=== PATIENT | male | born 1965 | race Caucasian/White ===

== ENCOUNTER 2017-07-19 11:02 | Inpatient (IN) | payer SELFPAY ==
--- NOTE | 2017-07-19 10:52 | EDPHY ---
H & P Constitutional: Initial Vital Signs Temperature (C) 36.8 C 07/19/17 11:02 Heart Rate 73 07/19/17 11:02 Respiratory Rate 16 07/19/17 11:02 Blood Pressure 188/115 H 07/19/17 11:02 O2 Sat (%) 96 07/19/17 11:02 O2 Delivery Mode Room Air Allergies/Adverse Reactions: Penicillins Allergy (Verified 07/19/17 11:34) Home Medications: Medication Instructions Recorded Atenolol 07/19/17 Coumadin 07/19/17 Medical Decision Making - Diagnostics Imaging Results: Imaging Impressions Head CT 07/19/17 11:07 Impression: No evidence for acute intracranial abnormality. Results relayed to Dr. Clint Coates at 1115 hours on 19 July 2017. Head CTA 07/19/17 11:07 Impression: 1. No acute vascular findings. If symptoms persist and clinical suspicion warrants, consider MRI. 2. Multilevel degenerative change in the cervical spine, with moderate to severe spinal canal narrowing and neural foraminal stenosis. 3. 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 4. Additional findings as above. Stenoses are calculated using [place] Symptomatic Carotid Endarterectomy Trial (NASCET) criteria. Findings discussed with Dr. Clint Coates on July 19, 2017 at 1136 hours. Neck CTA 07/19/17 11:07 Impression: 1. No acute vascular findings. If symptoms persist and clinical suspicion warrants, consider MRI. 2. Multilevel degenerative change in the cervical spine, with moderate to severe spinal canal narrowing and neural foraminal stenosis. 3. 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 4. Additional findings as above. Stenoses are calculated using [place] Symptomatic Carotid Endarterectomy Trial (NASCET) criteria. Findings discussed with Dr. Clint Coates on July 19, 2017 at 1136 hours. Chest X-Ray 07/19/17 11:10 Impression: Hypoventilation and moderate airways disease. Imaging: Discussed imaging studies w/ call center professional Radiologist, I viewed and interpreted images myself ED Course/Re-evaluation: CHIEF COMPLAINT: Stroke Alert, aphasia HISTORY OF PRESENT ILLNESS: The patient is an anticoagulated 51 y/o male arriving emergently via EMS with his girlfriend as a Stroke Alert for acute difficulty speaking and facial paresthesias onset 1-2 hours prior to arrival here, between 09:00-10:00am. He was last seen normal by his girlfriend around 09:10 when she woke him up before going outside to smoke, though she has great difficulty clearly describing the progression of events and time onset. She thinks he seemed "sluggish" but was otherwise walking and speaking normally, but she didn't interact with him much. At some point he told his he felt ill and sat down between 09:30-10:00. He complained of right facial numbness, headache, and had difficulty walking. His then noticed he started "gurgling" and could not speak normally. Per , he has a history of CVA with some left-sided weakness in his leg and normally walks with a cane. She also says he complained of an occipital headache yesterday and took 2 aspirin today. He takes Coumadin, but his girlfriend is unable to tell me what he takes it for. He has a history of multiple heart attacks per girlfriend. She is an extremely poor historian and patient is aphasic and unable to contribute to history. REVIEW OF SYSTEMS: Difficult to obtain due to poor history. PHYSICAL EXAM: HR, BP, O2 Sat, RR. Temp noted General Appearance: Alert, aphasic, able to follow some commands, only moving right arm minimally. Head: Atraumatic without scalp tenderness or obvious injury Eyes: Pupils equal, round, reactive to light and accommodation, EOMI, no trauma , no injection. Ears: Clear bilaterally, no perforation, normal landmarks Nose: Atraumatic, no rhinorrhea, clear. Throat: Mucus membranes moist. Neck: Supple, no apparent tenderness, no lymphadenopathy. Respiratory: No retractions, no distress, no wheezes, and no accessory muscle use. Lungs are clear to auscultation bilaterally. Cardiovascular: Regular rate and rhythm, no murmurs, rubs, or gallops. Good capillary refill all extremities. Gastrointestinal: Abdomen is soft, no apparent tenderness, non-distended, no masses, no rebound, no guarding, no peritoneal signs. Musculoskeletal: Atraumatic. Neurological: Alert, unable to hold up right arm though sometimes able to move it at shoulder, elbow, and hand; minimal ability to lift right leg; unable to lift left arm or leg. Completely aphasic. Skin: No rashes, good turgor, no nodules on palpation. Past medical history: Prior CVA, multiple heart attacks, hypertension. On Coumadin. Past surgical history: Unknown Family history: Unknown Social history: Lives with girlfriend who is at bedside. Smoker. DIAGNOSTICS/PROCEDURES/CRITICAL CARE TIME: The 12 lead EKG was interpreted by myself. Sinus mechanism. See hard copy and/ or "tracemaster" electronic copy for interpretation. Noncontrast head CT: nothing acute Head and neck CTA: nothing acute Chest x-ray: airways disease DIFFERENTIAL DIAGNOSIS: The differential diagnosis for the patient's neurologic deficits included but was not limited to peripheral causes, central causes including CVA, TIA, electrolyte abnormalities and dehydration, cardiogenic causes, atypical causes like migraine syndrome. MEDICAL DECISION MAKIN: Met EMS upon arrival and took report. Patient is completely aphasic and appears to have weakness in all extremities on limited exam. Some muscle tone in his right arm and able to sit up and follow some commands. Initial report is this began acutely between 09:00-10:00 this morning. Patient has history of prior CVA and is on Coumadin. 1103: Patient sent directly to CT for noncontrast head CT. 1106: Consulted with Dr. Self, [facility]. He will review films when they result and call me back. 1116: Noncontrast head CT negative for hemorrhage. ISTAT shows normal creatinine. Head and neck CTAs in progress. 1137: No large vessel occlusion on CTAs.Patient will be admitted here. He is likely a TPA candidate due to presentation and subtherapeutic INR. 1140: Spoke with hospitalist service. Dr. Acuña accepts admission for CVA. 1142: Consulted with Dr. Self, neurology. He will assess patient via robot. Patient is hypertensive at 186/118, 10mg labetalol ordered. 1155: After further discussion with patient's girlfriend, Dr. Self and myself cannot pin down a time of onset and are in agreement that patient is not a TPA candidate. Girlfriend is an extremely poor historian and is unable to describes patient's baseline deficits from prior CVA, why he is on Coumadin, or what symptoms she witnessed this morning. Patient remains aphasic with pronounced left-sided weakness. Some movement of right arm, minimal strength in right leg. Will wait on any further anticoagulation with Eliquis/Xarelto until brain MRI further categorizes stroke. 1200: Consulted with Dr. De Paz, neurology. He agrees with plan for admission and MRI. However, patient has some type of metallic object visible on his head CT that radiology will determine if he can have an MRI. - Data Points Laboratory Results: Laboratory Results 07/19/17 11:14 07/19/17 11:14 07/19/1718 07/19/17 11:14 11:14 11:14 WBC 5.75 10^3/uL 10^3/uL (3.80-9.50) RBC 5.40 10^6/uL 10^6/uL (4.40-6.38) Hgb 16.5 g/dL g/dL (13.7-17.5) Hct 45.2 % % (40.0-51.0) MCV 83.7 fL fL (81.5-99.8) MCH 30.6 pg pg (27.9-34.1) MCHC 36.5 g/dL g/dL (32.4-36.7) RDW 14.4 % % (11.5-15.2) Plt Count 190 10^3/uL 10^3/uL (150-400) MPV 10.8 fL fL (8.7-11.7) Neut % (Auto) 63.5 % % (39.3-74.2) Lymph % (Auto) 23.5 % % (15.0-45.0) Payne % (Auto) 7.0 % % (4.5-13.0) Eos % (Auto) 3.0 % % (0.6-7.6) Baso % (Auto) 2.3 % H % (0.3-1.7) Nucleat RBC Rel Count 0.3 % H % (0.0-0.2) Absolute Neuts (auto) 3.66 10^3/uL 10^3/uL (1.70-6.50) Absolute Lymphs (auto) 1.35 10^3/uL 10^3/uL (1.00-3.00) Absolute Monos (auto) 0.40 10^3/uL 10^3/uL (0.30-0.80) Absolute Eos (auto) 0.17 10^3/uL 10^3/uL (0.03-0.40) Absolute Basos (auto) 0.13 10^3/uL H 10^3/uL (0.02-0.10) Absolute Nucleated RBC 0.02 10^3/uL H 10^3/uL (0-0.01) Immature Gran % 0.7 % % (0.0-1.1) Immature Gran # 0.04 10^3/uL 10^3/uL (0.00-0.10) RBC/WBC/PLT Morphology NORMAL (NORMAL) Platelet Estimate ADEQUATE (ADEQ) PT 12.7 SEC SEC (12.0-15.0) INR 0.93 (0.83-1.16) APTT 28.2 SEC SEC (23.0-38.0) Sodium 144 mEq/L mEq/L (135-145) Potassium 4.1 mEq/L mEq/L (3.5-5.2) Chloride 107 mEq/L mEq/L (97-110) Carbon Dioxide 23 mEq/l mEq/l (22-31) Anion Gap 14 mEq/L mEq/L (8-16) BUN 14 mg/dL mg/dL (7-23) Creatinine 0.9 mg/dL mg/dL (0.7-1.3) Estimated GFR > 60 Glucose 178 mg/dL H mg/dL (70-100) Calcium 9.5 mg/dL mg/dL (8.5-10.4) Medications Given: Discontinued Medications Labetalol HCl (Trandate Injection) 10 mg IVP ONCE ONE Stop: 07/19/17 11:43 Last Admin: 07/19/17 11:49 Dose: 10 mg Departure - Departure Disposition: [facility] Inpatient Acute Clinical Impression: CVA (cerebral vascular accident) Qualifiers: CVA mechanism: other Qualified Code(s): I63.8 - Other cerebral infarction Condition: Serious Report Scribed for: Clint Coates Report Scribed by: Tuyet Villa Date of Report: 07/19/17 Time of Report: 11:09
[2017-07-19] MEDS ORDERED: IOPAMIDOL (ISOVUE 370) 100 ML BTL IV ONE (11:22)
[2017-07-19 11:33] LABS: INR 0.93 (0.83-1.16); PROTIME(PATIENT) 12.7 SEC (12.0-15.0)
[2017-07-19 11:37] LABS: PLATELET COUNT 190 10^3/uL (150-400)
[2017-07-19] MEDS ORDERED: ALTEPLASE 100 MG/100 ML VIAL IV ONE (11:38)
[2017-07-19] MEDS ORDERED: LABETALOL HCL 5 MG/ML 20 ML MDV IVP ONE (11:42)
--- NOTE | 2017-07-19 11:42 | CPEKG ---
Heart Rate: 74 RR Interval: 811 P-R Interval: 240 QRSD Interval: 96 QT Interval: 396 QTC Interval: 440 P [place]: 43 QRS [place]: -39 T Wave [place]: 68 EKG Severity - ABNORMAL ECG - EKG Impression: SINUS RHYTHM EKG Impression: FIRST DEGREE AV BLOCK EKG Impression: LEFT AXIS DEVIATION EKG Impression: LEFT VENTRICULAR HYPERTROPHY Electronically Signed By: Clint Coates 20-Jul-2017 13:56:06
[2017-07-19] MEDS ORDERED: ONDANSETRON 4 MG/2 ML VIAL IVP PRN (12:34)
[2017-07-19] MEDS ORDERED: LABETALOL HCL 5 MG/ML 20 ML MDV IVP PRN (12:34)
[2017-07-19] MEDS ORDERED: ONDANSETRON DISINTEGRATING 4 MG TAB PO PRN (12:34)
[2017-07-19] MEDS ORDERED: ACETAMINOPHEN 325 MG TAB PO PRN (12:34)
--- NOTE | 2017-07-19 13:18 | GHP ---
[f rep st] HISTORY AND PHYSICAL DATE OF ADMISSION: 07/19/2017 CHIEF COMPLAINT: Aphasia. HISTORY OF PRESENT ILLNESS: This is a 51-year-old male with a history of CVA x3 , VA x2, left lower leg clot, and atrial fibrillation who was brought in emergently by EMS for a stroke alert. He had difficulty speaking with facial paresis at approximately 9:00 this morning. They live in [place], but are up here in [place] visiting family. Yesterday, he said he did not feel well and began a dull headache in the back of his head at approximately 1 p.m. He was doing okay at bedtime, but felt off. He had some nausea. This morning he needed help off the bed, which is unusual for him, per his girlfriend. He did walk to the kitchen for coffee, but was very unsteady and was unable to talk. She described it as a gurgly noise, nonsensical. In my interview, he was able to write out that he has had 3 strokes and 2 heart attacks, treated in [place], [place]. He has been out of his Coumadin for 2 weeks. He takes atenolol 50 mg a day. He does report residual left arm and leg weakness since a prior stroke and does use a cane, but has not used that up until the last week or so. REVIEW OF SYSTEMS: I completed a 10-point review of system with the girlfriend and the patient with some difficulty. PAST MEDICAL HISTORY: 1. Atrial fibrillation. 2. Left lower extremity clot. 3. CVA x3 with residual left-sided hemiparesis. 4. VA x2. PAST SURGICAL HISTORY: Tonsillectomy. FAMILY HISTORY: Dad's side had VA. Uncle had a stroke. Grandfather had a stroke. ALLERGIES: PCN causes anaphylaxis. HOME MEDICATIONS: Atenolol 50 mg daily and Coumadin of unclear dose, but he has not taken this in 2 weeks. PHYSICAL EXAMINATION: VITAL SIGNS: Temperature is 36.8, blood pressure was 118 /115 and is now 160/107, heart rate is in the 70s, respirations 16, and sat is 91% on room air. GENERAL: Overweight male sitting up in the bed, tearful. HEENT: Pupils are round and reactive. Dry mucous membranes. CV: Regular rate and rhythm with no murmurs, gallops, or rubs. LUNGS: Clear to auscultation anteriorly. ABDOMEN: Obese, but soft, nontender, and nondistended. : No Meraz or suprapubic tenderness. MUSCULOSKELETAL: Left hand flexographic press operator is 3/5. Left leg strength is 1/5. He is unable to lift his right leg. He is not able to stick his tongue out. He is not able to form words, but is able to write for me. PSYCHIATRIC: Tearful. LABORATORY DATA: WBC is 5, hemoglobin 16, hematocrit 45, and platelets 190. INR is 0.93 and PT is 12.7. Sodium is 144, potassium 4.1, chloride 107, carbon dioxide 23, creatinine 0.9, glucose 178, and calcium is 9.5. IMAGING: Head CT reveals no evidence of acute mass effect. Head and neck CTA reveals no evidence of acute vascular findings. Chest x-ray was personally reviewed by me and reveals hypoventilation, but no evidence of effusion. EKG was personally reviewed by me and reveals a first-degree heart block with LVH. ASSESSMENT AND PLAN: 1. Acute aphasia with complex concern for stroke: h/o 3 prior strokes with chronic left-sided weakness. Was evaluated by Dario ying in the emergency room, but no tPA candidate since symptoms seem to have began a couple days ago. Admit to the ICU for frequent neurologic checks, PT, OT, and speech evaluations. Neurology will consult. Cannot do MRI with "BB" seen on CT. Will repeat CTH in morning. Echocardiogram and monitor on telemetry with h/o atrial fibrillation. Allow for permissive hypertension overnight. Check lipids. 2. Reported history of atrial fibrillation: NSR here. Subtherapeutic INR since out of Coumadin for 2 weeks. Telemetry. Resume AC if normal CT in morning. 3. Uncontrolled hypertension: query compliance with his home medications. Again, allow for permissive hypertension overnight. 4. History of left leg deep vein thrombosis: resume AC if stable CTH. 5. Diet. n.p.o until speech eval 6. Deep venous thrombosis prophylaxis with sequential compression devices. The patient warrants inpatient admission given acute aphasia with concern for stroke warranting further imaging, cardiac studies, and Neurology evaluation. We will obtain outside hospital records from [place], [place]. /[id number]/MODL MTDD
--- NOTE | 2017-07-19 17:28 | PDMN ---
Medical Necessity Medical necessity: Pt meets INPT criteria per MD and [facility] (est. LOS >2 MN for eval/mgmt of acute aphasia with complex concern for stroke, uncontrolled hypertension; hx DVT, CVA, CO, afib).
--- NOTE | 2017-07-19 18:24 | ECHO ---
[email or web address] [address] [address] Main: [phone] Fax: Transthoracic Echocardiogram Name: CHASE SOTO MR#: [id number] Study Date: 07/19/2017 Study Time: 02:56 PM Date of : 1965 Age: 51 year(s) Height: 182.9 cm (72 in.) Weight: 108.41 kg (239 lb.) BSA: 2.3 m2 Gender: Male Examination: Echo with Agitated Saline Indication: ischemic stroke; r/o PFO with bubble study Image Quality: Technically Difficult Contrast: I.V. dose of agitated saline Requested by: Janice Acuña BP: 156 mmHg/83 mmHg Heart Rate: Rhythm: Indication: ischemic stroke; r/o PFO with bubble study Procedure Staff Director Retirement: Seble Jarrell Reading Physician: Eric Crawford Requesting Provider: Conclusions: Normal size left ventricle. Moderate concentric LV hypertrophy. Normal global systolic LV function. EF is 64 %. Due to poor endocardial definition it is diffcult to rule out a wall motion abnormality. Grade 1 diastolic dysfunction (abnormal relaxation). Upper normal size right ventricle. Normal RV function. The left atrium is normal in size. An agitated saline study was performed and was negative for intracardiac shunting. The right atrium is normal in size. The mitral valve is normal in appearance and function. There is no significant mitral valve regurgitation. No mitral stenosis is present. The tricuspid valve appears normal. Trivial tricuspid valve regurgitation. Pulmonary valve not well visualized. Trivial to mild pulmonic valve regurgitation. Normal size aortic root measuring 3.9 cm. No pericardial effusion. A cardiac source of embolus is not identified on the basis of this study. If cardiac source is strongly suspected then a NIEVES to evaluate the left atrial appendage may be considered. Measurements: Chambers Valvular Assessment AV/MV Valvular Assessment TV/PV Normal Normal Normal Name Value Range Name Value Range Name Value Range Patient: CHASE SOTO Study Date: 07/19/2017 Page 1 of 2 02:56 PM Ao Aissatou (MM): 3.9 cm (2.2 cm-3.7 AV Vmax: 1.22 m/s (1 m/s-1.7 PV Vmax: 0.88 m/s (0.6 m/s-0.9 cm) m/s) m/s) IVSd (2D): 1.5 cm (0.6 cm-1.1 AV maxP mmHg ( - ) PV PGmax: 3 mmHg ( - ) cm) LVOT Vmax: 1.16 m/s (0.7 m/s-1.1 LVDd (2D): 4.3 cm (4.2 cm-5.9 m/s) cm) MV E Vmax: 0.64 m/s ( - ) LVDs (2D): 2.8 cm (2.1 cm-4 MV A Vmax: 0.94 m/s ( - ) cm) MV E/A: 0.68 ( - ) LVPWd (2D): 1.3 cm (0.6 cm-1 cm) LVEF (MOD4): 64 % (>=55 %) RVDd(2D): 3.8 cm (1.9 cm-3.8 cmmm) Continued Measurements: Chambers Valvular Assessment AV/MV Name Value Name Value LADs Lon.1 cm MV DecTime: 257 m/s LA Area: 24.3 cm2 MV E' Septal: 0.09 m/s LA Volume: 65 ml MV E/E' Septal: 7.20 LA Volume Index: 28.3 ml/m2 MV E/E' Lateral: 8.40 Findings: Left Ventricle: Normal size left ventricle. Moderate concentric LV hypertrophy. Normal global systolic LV function. EF is 64 %. Due to poor endocardial definition it is diffcult to rule out a wall motion abnormality.Grade 1 diastolic dysfunction (abnormal relaxation). Right Ventricle: Upper normal size right ventricle. Normal RV function. Left Atrium: The left atrium is normal in size. An agitated saline study was performed and was negative for intracardiac shunting. Right Atrium: The right atrium is normal in size. Mitral Valve: The mitral valve is normal in appearance and function. There is no significant mitral valve regurgitation. No mitral stenosis is present. Aortic Valve: Aortic valve is not well visualized. There is no significant aortic valve regurgitation. No aortic valve stenosis is present. Tricuspid Valve: The tricuspid valve appears normal. Trivial tricuspid valve regurgitation. Pulmonary artery pressure is not obtained due to inadequate TR jet. Pulmonic Valve: Pulmonary valve not well visualized. Trivial to mild pulmonic valve regurgitation. Aorta: Normal size aortic root measuring 3.9 cm. Pericardium: No pericardial effusion. (No Signature Object) Patient: CHASE SOTO Study Date: 07/19/2017 Page 2 of 2 02:56 PM [id number]
[2017-07-19] MEDS ORDERED: D5W 1/2 NS 1,000 ML IV SCH (23:45)
[2017-07-20 06:08] LABS: INR 1.01 (0.83-1.16); PROTIME(PATIENT) 13.5 SEC (12.0-15.0)
[2017-07-20 07:50] VITALS: BP 161/94; PULSE 61; RESP 8; TEMP 98.2; O2SAT 96
--- NOTE | 2017-07-20 10:11 | NEUROPROG ---
Assessment: HOSPITAL NEUROLOGY CONSULT REQUESTING: Janice Acuña MD REASON: possible stroke HPI: 51 year old right-handed man with a reported history of afib on anticoagulation , LLE DVT, ischemic stroke x3 with residual LLE weakness, [place] x 2 presented to our facility 07/19 with concerns for a stroke. Patient is a marginal historian and somewhat childlike, which limits our history. Patient apparently experienced all of his medical issues in [place]. He's never been to a hospital in [place], and no records are present for this patient on [facility]. He states he's been told he's had 3 ischemic strokes, which have left him with LLE weakness requiring a cane for ambulation. On day of admit, he apparently woke feeling "groggy" and at some point in the morning stopped talking completely, but was able to comprehend and write. He had reported tingling in his right face, but today reports he had tingling in his right fingers. They presented to our ED and given the lack of definitive time on onset and last known well, he was not deemed a thrombolytic candidate. CT head wo was done showing normal brain parenchyma. CTA head/neck showed no vascular disease. He was admitted for further workup. He continued to be unable to produce any speech, but was able to write without difficulty. It was noted he had some left arm and leg weakness, though some effort against gravity. This morning he has regained his speech/language function. However, he states he is unable to move his left arm and leg at all - he tells me this is his baseline. He denies any other complaints this morning. ROS: As per the HPI, otherwise a complete 12 point ROS was performed and is negative ALLERGIES AND MEDS: As recorded in the EMR - reviewed and reconciled PFSH: As per the intake H&P by Dr. Acuña from 07/19 EXAM: VS reviewed in EMR GEN: WDWN laying in NAD HEENT: NCAT, sclera anicteric, conjunctiva not injected, MMM, oropharynx clear, no scalp tenderness NECK: supple, nontender, no meningismus CV: RRR s1 s2 wo m/r/c/g. Carotid pulses 2+ wo bruit NEURO: MS: awake, alert, oriented to all spheres. Speech nondysarthric, but childlike. No language disturbance. Follows commands. Attends to both sides. Recent/remote memory grossly intact. Mood euthymic, but childlike affect. Borderline fund of knowledge. Poor insight. CN: pupils 3mm round and reactive. Intolerant of fundoscopy. VFF. Primary gaze centered. Full ocular motility. Facial sensation preserved. Face symmetric. Hearing grossly intact to finger rub. Palatoglossal movements intact. Shoulder shrug and head turn strong. MOTOR: normal bulk. No adventitial movements. On initial portion of the exam, he is completely flaccid in the LUE/LLE. However, he was seen moving his hand/ fingers when distracted. I was able to provide encouragement and after about 30 seconds of intervention he had full power in the LUE/LLE. He is otherwise full power throughout. SENSORY: symmetric LT/PP throughout. No extinction. COORD: FN/HS robotic in LUE/LLE, though when distracted he is moving the limbs quite smoothly with goal directed movements. Jered strange/robotic in LUE. REFLEX: plantars down. No clonus. DTRS 2/4. GAIT: deferred to PT safety eval DATA REVIEW: Labs reviewed in EMR PERSONALLY INTERPRETED RESULTS AND DATA: CT head wo from 07/19 and 07/20 reviewed - normal brain parenchyma, metallic artifact in the soft tissue of the left denominational (looks like a BB). CTA head/neck as per the HPI IMPRESSION AND RECOMMENDATIONS: // CONVERSION DISORDER Patient with variable symptoms manifesting at different times, which resolve with time and encouragement. Given the mutism with preserved comprehension and writing, and given the duration of symptoms, we should have seen a noticeable infarct in the left inferior frontal cortex and subcortical regions (which would have been consistent with aphemia if this were organic). However, given the duration of symptoms, complete spontaneous resolution, no residual hoarseness of voice and lack of any evidence on change on CT, as well as his motor exam today, the overall clinical picture is overwhelmingly nonorganic. I recommend he continue to have his reported medical comorbidities verified and managed, if needed, in the outpatient setting. I also recommend evaluation with psychiatry and psychology in the outpatient setting for his conversion disorder. OK for discharge from a neurologic perspective. Case was discussed with nursing and Dr. Acuña. Will sign off. Recall PRN. Objective: Vital Signs Temp Pulse Resp BP Pulse Ox 36.8 C 61 8 L 161/94 H 96 07/20/17 07:47 07/20/17 07:47 07/20/17 07:47 07/20/17 07:47 07/20/17 07:47 Laboratory Results 07/20/17 05:38 07/19/17 07/20/17 07/21/17 05:59 05:59 05:59 Intake Total 373 Output Total 1100 Balance -727 PT 13.5 SEC (12.0-15.0) 07/20/17 05:38 INR 1.01 (0.83-1.16) 07/20/17 05:38 Allergies/Adverse Reactions: Penicillins Allergy (Severe, Verified 07/19/17 15:19) Anaphylaxis
--- NOTE | 2017-07-20 11:19 | ASMTCMCOM ---
CM Note CM Note Notes: Patient admitted as stroke alert; today, his symptoms have resolved and he is being discharged home with family. No Case Management needs identified. It was recommended that patient follow up with his outpatient providers and psychiatriy when he returns home to [place]. Date Signed: 07/20/2017 11:18 AM Electronically Signed By:Ingrid Lopez RN
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
--- NOTE | 2017-07-20 15:54 | ASDISCHSUM ---
Discharge Information Plan Status:Home with No Needs Medically Cleared to Leave: Discharge Date:07/20/2017 11:30 AM CM D/C Disposition:Home, Routine, Self-Care ADT D/C Disposition:Home, Routine, Self-Care Projected Discharge Date:07/20/2017 11:30 AM Transportation at D/C:Family Discharge Delay Reason: Follow-Up Date:07/20/2017 11:30 AM Discharge Slot: Final Diagnosis: Placement Information Patient Contact Information Contact Name:JARETTRAVENAtul Relationship: Address: EITHER [employer] OR MOTHER - [place] City: [facility] Phone: [facility] Code: Email: Financial Information Financial Class:Self-Pay Primary Plan Desc:SELF PAY Primary Plan Number: Secondary Plan Desc: Secondary Plan Number: Assessment Information [facility] CM Progress Note CM Note CM Note Notes: Patient admitted as stroke alert; today, his symptoms have resolved and he is being discharged home with family. No Case Management needs identified. It was recommended that patient follow up with his outpatient providers and psychiatriy when he returns home to [place]. Date Signed: 07/20/2017 11:18 AM Electronically Signed By:Ingrid Lopez RN Intervention Information
== END 2017-07-20 11:30 | disposition home or self-care (01) | DRG 392 ==
LOC: EDBD 11:02 → F2N 14:33
PROVIDERS: ADMIT Internal Medicine; ATTEND Internal Medicine
DX: R13.19 Other dysphagia (principal); I69.354 Hemiplegia and hemiparesis following cerebral infarction affecting left non-dominant side; I48.91 Unspecified atrial fibrillation; I10 Essential (primary) hypertension; I25.2 Old myocardial infarction; Z79.01 Long term (current) use of anticoagulants; Z86.718 Personal history of other venous thrombosis and embolism; Z79.82 Long term (current) use of aspirin
CPT/HCPCS: 82947-QW; 92610-GN; 96374; J2997; J3490; Q9967

== ENCOUNTER 2018-10-30 12:35 | Observation (INO) | payer SELFPAY ==
--- NOTE | 2018-10-30 12:36 | EDPHY ---
H & P Time Seen by Provider: 10/30/18 12:36 HPI/ROS: CHIEF COMPLAINT: Stroke alert HISTORY OF PRESENT ILLNESS: Patient was having a meal with his family at 12:10 p.m. Suddenly went aphasic and then obtunded and nonverbal. Did not have vomiting or complain of severe headache. Apparently had stroke which presented like this before. Pre-hospital glucose 105. Patient was unable to speak in route, further history and review of systems unable because he is nonverbal on arrival and family is not available. PAST MEDICAL HISTORY: History and physical and discharge summary dated July 19 and 2017 personally reviewed includes history of AFib, DVT, previous stroke in [place], has been on warfarin in the past. Social history: Patient was with family when this started, per EMS General Appearance: Patient opens eyes spontaneously but is nonverbal. Eyes: No scleral icterus. Pupils react to light. ENT, Mouth: Normal mucous membranes. Respiratory: Normal respiratory effort, breath sounds equal, lungs are clear to auscultation. Cardiovascular: Regular rate and rhythm. Gastrointestinal: Abdomen is soft and non tender. Neurological: Opens eyes spontaneously but no vocalizations and no spontaneous movements of extremities. Skin: Warm and dry, no rashes. Musculoskeletal: No peripheral edema. Psychiatric: Unable, nonverbal. Emergency Department course/MDM: Arrives as a stroke alert. To CT and back, [facility] consultation. 1246: negative head CT per Karol. 1250: Discussed with Dr. Toledo recommends CTA, no tPA. 1317: Discussed with the and son who state that the patient did not have a facial. He stated he was standing at home in the middle of a lot of family stress when he suddenly turned to his son and said I think I am going to have a stroke and then went unconscious and obtunded. 1328: CT a normal per Heljonathans, the patient now is awake and is holding a thermometer under his tongue and can move his right hand and foot but says he can't move his left side. 1335: Dr. Toledo re-evaluated the patient via telemedicine, admission, no IV Activase. Diagnosis still uncertain, the patient improving, the patient communicates by writing that he is on warfarin or Coumadin, INR is less than 1. 1403: Discussed with Oseas. Admit hospitalist further evaluation. More awake. Denies severe headache. 2 doses of IV labetalol given for hypertension in the setting of acute neurologic dysfunction, initial blood pressure 225/123. At 2:17 p.m. 165/106. Smoking Status: Heavy smoker Constitutional: Initial Vital Signs Temperature (C) 37.0 C 10/30/18 12:48 Heart Rate 86 10/30/18 12:48 Respiratory Rate 16 10/30/18 12:48 Blood Pressure 225/123 H 10/30/18 12:48 O2 Sat (%) 97 10/30/18 12:48 O2 Delivery Mode Nasal Cannula O2 (L/minute) 3 Allergies/Adverse Reactions: Penicillins Allergy (Severe, Verified 07/19/17 15:19) Anaphylaxis Home Medications: Medication Instructions Recorded Aspirin [Aspirin 81mg (*)] 81 - 162 mg PO DAILY PRN 07/19/17 Atenolol [Tenormin 50 mg (*)] 50 mg PO DAILY 07/19/17 Medical Decision Making - Diagnostics EKG Interpretation: 12-lead EKG interpreted by me; official reading is in computer system. My interpretation is sinus rhythm rate 75 with LVH and the left atrial enlargement. Imaging Results: Imaging Impressions Head CT 10/30/18 12:37 Impression: Negative. No acute intracranial hemorrhage or evidence of ischemia. Findings discussed with Emergency Department physician, Dr. Selvin Lyles on October 30, 2018 at 1247 hours. Head CTA 10/30/18 12:51 Impression: 1. Normal intracranial arterial circulation. No evidence of embolic disease or aneurysm. 2. Patent venous system. Findings discussed with Emergency Department physician, Dr. Selvin Lyles on October 30, 2018 at 1327 hours. Neck CTA 10/30/18 12:51 Impression: Widely patent carotid and vertebral arteries. No flow-limiting stenosis, dissection or occlusion. Findings discussed with Emergency Department physician, Dr. Selvin Lyles on October 30, 2018 at 1327 hours. Measurement of carotid stenosis is based on the residual internal carotid diameter with [place] Symptomatic Carotid Endarterectomy Trial (NASCET) based stenosis levels. Imaging: Discussed imaging studies w/ solid waste disposal manager Radiologist Differential Diagnosis: Differential considered including but not limited to seizure, ischemic stroke, intracranial mass or bleed, CASTER HELPER infection, hypoglycemia, hypertensive encephalopathy, acute subarachnoid. Consult/Admit Bed Type: [place] [id number] Critical Care Time: Critical care time spent by me, Dr. Lyles, exclusively with the care of this patient was 45 minutes, exclusive of PA or PATTERN PUNCHER time and exclusive of separate procedures. The organ system at risk was neurologic and I ordered multiple diagnostics and serial exam and specialist consultation. - Data Points Laboratory Results: Laboratory Results 10/30/18 12:30 10/30/18 12:30 10/30/18 10/30/18 10/30/18 12:42 12:39 12:30 WBC RBC Hgb POC Hgb 18.0 gm/dL H gm/dL (13.7-17.5) Hct POC Hct 53 % H % (40-51) MCV MCH MCHC RDW Plt Count MPV Neut % (Auto) Lymph % (Auto) Nuckolls % (Auto) Eos % (Auto) Baso % (Auto) Nucleat RBC Rel Count Absolute Neuts (auto) Absolute Lymphs (auto) Absolute Monos (auto) Absolute Eos (auto) Absolute Basos (auto) Absolute Nucleated RBC Immature Gran % Immature Gran # PT INR POC Sodium 142 mEq/L mEq/L (135-145) Sodium 140 mEq/L mEq/L (135-145) POC Potassium 4.1 mEq/L mEq/L (3.3-5.0) Potassium 4.5 mEq/L mEq/L (3.5-5.2) POC Chloride 103 mEq/L mEq/L (97-110) Chloride 105 mEq/L mEq/L (97-110) Carbon Dioxide 26 mEq/l mEq/l (22-31) POC Total CO2 29 mEq/L mEq/L (22-31) Anion Gap 9 mEq/L mEq/L (6-14) POC BUN 16 mg/dL mg/dL (7-23) BUN 17 mg/dL mg/dL (7-23) Creatinine 1.0 mg/dL mg/dL (0.7-1.3) POC Creatinine 1.1 mg/dL mg/dL (0.7-1.3) Estimated GFR > 60 Glucose 117 mg/dL H mg/dL (70-100) POC Glucose 123 mg/dL H mg/dL (70-100) Calcium 9.6 mg/dL mg/dL (8.5-10.4) POC Troponin I 0.01 ng/mL ng/mL (0.00-0.08) 10/30/18 10/30/18 12:30 12:30 WBC 7.48 10^3/uL 10^3/uL (3.80-9.50) RBC 6.10 10^6/uL 10^6/uL (4.40-6.38) Hgb 17.9 g/dL H g/dL (13.7-17.5) POC Hgb Hct 50.3 % % (40.0-51.0) POC Hct MCV 82.5 fL fL (81.5-99.8) MCH 29.3 pg pg (27.9-34.1) MCHC 35.6 g/dL g/dL (32.4-36.7) RDW 14.7 % % (11.5-15.2) Plt Count 212 10^3/uL 10^3/uL (150-400) MPV 10.6 fL fL (8.7-11.7) Neut % (Auto) 51.8 % % (39.3-74.2) Lymph % (Auto) 35.3 % % (15.0-45.0) Nuckolls % (Auto) 7.9 % % (4.5-13.0) Eos % (Auto) 2.7 % % (0.6-7.6) Baso % (Auto) 1.9 % H % (0.3-1.7) Nucleat RBC Rel Count 0.0 % % (0.0-0.2) Absolute Neuts (auto) 3.88 10^3/uL 10^3/uL (1.70-6.50) Absolute Lymphs (auto) 2.64 10^3/uL 10^3/uL (1.00-3.00) Absolute Monos (auto) 0.59 10^3/uL 10^3/uL (0.30-0.80) Absolute Eos (auto) 0.20 10^3/uL 10^3/uL (0.03-0.40) Absolute Basos (auto) 0.14 10^3/uL H 10^3/uL (0.02-0.10) Absolute Nucleated RBC 0.00 10^3/uL 10^3/uL (0-0.01) Immature Gran % 0.4 % % (0.0-1.1) Immature Gran # 0.03 10^3/uL 10^3/uL (0.00-0.10) PT 12.3 SEC SEC (12.0-15.0) INR 0.95 (0.83-1.16) POC Sodium Sodium POC Potassium Potassium POC Chloride Chloride Carbon Dioxide POC Total CO2 Anion Gap POC BUN BUN Creatinine POC Creatinine Estimated GFR Glucose POC Glucose Calcium POC Troponin I Medications Given: Discontinued Medications Labetalol HCl (Trandate Injection) 20 mg IVP EDNOW ONE Stop: 10/30/18 13:19 Last Admin: 10/30/18 13:32 Dose: 20 mg Labetalol HCl (Trandate Injection) 20 mg IVP EDNOW ONE Stop: 10/30/18 13:19 Last Admin: 10/30/18 13:32 Dose: Not Given Point of Care Test Results: Chemistry 10/30/18 10/30/18 12:42 12:39 POC Sodium 142 mEq/L mEq/L (135-145) POC Potassium 4.1 mEq/L mEq/L (3.3-5.0) POC Chloride 103 mEq/L mEq/L (97-110) POC Total CO2 29 mEq/L mEq/L (22-31) POC BUN 16 mg/dL mg/dL (7-23) POC Creatinine 1.1 mg/dL mg/dL (0.7-1.3) POC Glucose 123 mg/dL H mg/dL (70-100) POC Troponin I 0.01 ng/mL ng/mL (0.00-0.08) ISTAT H&H 10/30/18 12:42 POC Hgb 18.0 gm/dL H gm/dL (13.7-17.5) POC Hct 53 % H % (40-51) Departure - Departure Disposition: [facility] Inpatient Acute Clinical Impression: Acute encephalopathy Condition: Fair
[2018-10-30 12:50] LABS: PLATELET COUNT 212 10^3/uL (150-400)
[2018-10-30] MEDS ORDERED: IOPAMIDOL (ISOVUE 370) 100 ML BTL IV ONE (12:52)
[2018-10-30 12:58] LABS: INR 0.95 (0.83-1.16); PROTIME(PATIENT) 12.3 SEC (12.0-15.0)
[2018-10-30] MEDS ORDERED: LABETALOL HCL 5 MG/ML 20 ML MDV IVP ONE ×2 (13:18)
--- NOTE | 2018-10-30 14:01 | CPEKG ---
Test Reason : OPEN Blood Pressure : / mmHG Vent. Rate : 075 BPM Atrial Rate : 076 BPM P-R Int : 254 ms QRS Dur : 088 ms QT Int : 389 ms P-R-T Axes : -50 -43 039 degrees QTc Int : 435 ms Sinus or ectopic atrial rhythm Prolonged NJ interval Probable left atrial enlargement Left ventricular hypertrophy Inferior infarct, old Minimal ST elevation, anterolateral leads Confirmed by Selvin Lyles ([id number]) on 10/30/2018 2:01:17 PM Referred By: Selvin Lyles Confirmed By:Selvin Lyles
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
[2018-10-30] MEDS ORDERED: ACETAMINOPHEN 500 MG TAB PO ONE (16:09)
[2018-10-31] MEDS ORDERED: ASPIRIN EC 81 MG TAB PO SCH (09:00)
[2018-10-31] MEDS ORDERED: hydrALAZINE 20 MG/ML VIAL IVP PRN (10:22)
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
[2018-10-31 13:59] VITALS: BP 165/92
--- NOTE | 2018-10-31 15:39 | ASMTLACE ---
LACE Length of stay for Answers: Less than 1 day current admission Comorbidities - select Answers: Cerebrovascular disease all that apply (CVA, TIA, aneurysms, vasc ular dementia) Opioid dependence / Chronic pain Previous myocardial infarction Other Notes: AFib; DVT # of Emergency department Answers: 1-2 visits in the last 6 months Score: 8 Date Signed: 10/31/2018 03:39 PM Electronically Signed By:Kirstie Lopez RN
--- NOTE | 2018-10-31 15:44 | ASMTCMCOM ---
CM Note CM Note Notes: Pt admitted for possible stroke. He has had these symptoms before, imaging did not reveal anything acute. Pt left before CM could speak with him, per MD may have "conversion disorder". Pt did not appear to want to stay and was cleared by neurology. DC Plan: Indpendent Date Signed: 10/31/2018 03:43 PM Electronically Signed By:Kirstie Lopez RN
--- NOTE | 2018-10-31 16:54 | ECHO ---
[email or web address] [address] Main: [phone] Echocardiography Examination Transthoracic Name: CHASE SOTO MR#: [id number] Study Date: 10/31/2018 Study Time: 11:35 AM Date of : 1965 Age: 53 year(s) Height: 177.8 cm (70 in.) Weight: 101.61 kg (224 lb.) BSA: 2.19 m2 Gender: Male Examination: Echo Contrast: Image Quality: Adequate Rhythm: Heart Rate: BP: 148 mmHg/102 mmHg Indication: questionable CVA Procedure Staff Referring Physician: Sharepoint Specialist: Janice Amin [facility] Reading Physician: Eric Crawford MD Requesting Provider: Ordering Physician: Neha Garza Indication: questionable CVA Measurements Chambers AV/MV Label Value Normal Value Label Value Normal Value LVOTd 2 cm (1.9cm - 2.1cm) AV PGmax 7 mmHg LVOT VTI 21.8 cm (18cm - 22cm) AV PGmean 4 mmHg LVDd, 2D 4.8 cm (4.2cm - 5.9cm) AV Vmax 1.29 m/s LVDs, 2D 3.3 cm (2.1cm - 4cm) KAN (VTI) 2.3 cm2 IVSd, 2D 1.5 cm (0.6cm - 1.1cm) MV E Vmax 0.66 m/s LVPWd, 2D 1.4 cm (0.6cm - 1cm) MV A Vmax 0.84 m/s LVEF, BP 56 % (55% - 70%) MV E/A 0.79 LVEF, 2D 58 % (54% - 74%) MV E/E' lateral 8.4 LVOT PGmean 3 mmHg MV E/E' septal 12.9 (0.5 - 1.7) LVOT Vmean 0.78 m/s MV DT 356 ms RVDd, 2D 3.9 cm (1.9cm - 3.8cm) MV E' septal 0.05 m/s LA Volume, BP 57 ml (18ml - 58ml) MV PHT 0.11 s LADs, 2D 3.6 cm (3cm - 4cm) MVA PHT 1.9 cm2 LAESV index, BP 26 ml/m2 MV E' lateral 0.08 m/s RA Area 16 cm2 MV E/E' mean 10.15 Additional Vessels MV PHT 113 ms Label Value Normal Value MV E' mean 0.06 m/s AoAsc 3.6 cm TV/PV AoRoot, 2D 3.3 cm (1.4cm - 2.6cm) Label Value Normal Value Patient: CHASE SOTO Study Date: 10/31/2018 Page 1 of 2 11:35 AM IVC 2.1 cm (1.2cm - 2.3cm) RA Pressure 5 mmHg RVSP 22 mmHg TR Pmax 17 mmHg TR Vmax 2.06 m/s PV PGmax 3 mmHg PV Vmax, Caliper 0.81 m/s (0.6m/s - 0.9m/s) Conclusions The patient has a normal LV chamber size and function. A cardiac source of embolus is not identified on the basis of this study. If a cardiac source is strongly suspected, consider NIEVES with bubble study, which would be more sensitive and specific for identifying a cardiac source of embolus. The patient does have LVH, which is an independent risk factor for stroke. Findings Left Ventricle: Left ventricle is normal in size. Normal global systolic left ventricular function. The ejection fraction, measured by Simpsons method, is 56 %. EF range is estimated at 55 % - 60 %. There is moderate concentric left ventricular hypertrophy. Left ventricular diastolic function parameters are normal. Right Ventricle: Normal size right ventricle. Right ventricular systolic function is normal. Left Atrium: The left atrium is normal in size. Right Atrium: The right atrium is normal in size. Mitral Valve: Mitral valve appears structurally normal. Mild mitral regurgitation. No mitral valve stenosis. Aortic Valve: Aortic leaflets are structurally normal. Trivial aortic regurgitation is present. There is no aortic stenosis. Tricuspid Valve: Tricuspid valve leaflets are structurally normal. Mild tricuspid regurgitation. No tricuspid valve stenosis. Right Ventricular systolic pressure is measured at 22 mmHg. Pulmonary artery pressure normal. Aorta: The aortic root size in 2D measures 3.3 cm. The ascending aorta measures 3.6 cm. Aorta Measurements AoRoot, 2D is 3.3 cm. IVC: The inferior vena cava is normal in size. Pericardium: No pericardial effusion. Exam Details Procedure Ordered: Echo Procedure Status: Routine study Image Quality: Adequate Facility Location: Bedside (No Signature Object) Patient: CHASE SOTO Study Date: 10/31/2018 Page 2 of 2 11:35 AM [id number]
== END 2018-10-31 14:38 | disposition home or self-care (01) ==
LOC: EDUNIT# → F3N 16:41
PROVIDERS: ADMIT Internal Medicine; ATTEND Internal Medicine
DX: R47.01 Aphasia (principal); R29.818 Other symptoms and signs involving the nervous system; I10 Essential (primary) hypertension; I69.354 Hemiplegia and hemiparesis following cerebral infarction affecting left non-dominant side; I25.2 Old myocardial infarction; I48.91 Unspecified atrial fibrillation; Z72.0 Tobacco use
CPT/HCPCS: 70551-PN; 82435-PO; 82565-PO; 82947-PO; 84132-PO; 84295-PO; 84484-ER; 84520-PO; 85014-ER; 92523-GN; 96374; 97162-GP; 97166-GO; G0378; J0360; Q9967